=== PATIENT | female | born 1955 | race Caucasian/White ===

== ENCOUNTER → 2018-06-13 | Outpatient (CLI) | payer OTHER ==
[~2018-06-13] MED LIST: CONTRAST GIVEN. MC PRN; IOHEXOL 300 MG/ML 100ML VIAL. IV ONE
--- NOTE | 2018-06-13 14:33 | RAD ---
CT abdomen and pelvis with contrast 06/13/2018 CLINICAL INDICATION: Blunt trauma. COMPARISON: None. TECHNIQUE: Multiple CT images of the abdomen and pelvis were obtained following intravenous administration of 75 mm Omnipaque 300. *One or more of the following individualized dose reduction techniques were utilized for this examination: 1. Automated exposure control. 2. Adjustment of the mA and/or kV according to patient size. 3. Use of iterative reconstruction technique. FINDINGS: Mild cardiomegaly without significant pericardial effusion. Mosaic attenuation the lung bases. Liver, spleen, left adrenal gland, pancreas and kidneys are unremarkable. There is a right adrenal gland lesion measuring 2.3 cm series 2/image 24. Cholecystectomy without biliary ductal dilatation. Abdominal aorta is normal in caliber with moderate calcified plaque. No retroperitoneal or mesenteric lymphadenopathy. Small and large bowel loops are normal in caliber without obstruction. Appendix is not discretely identified and may be absent. Minimal sigmoid diverticulosis without diverticulitis. No abdominal free fluid. No pneumoperitoneum. Urinary bladder is decompressed. Uterus and adnexa are grossly unremarkable. No iliac or inguinal lymphadenopathy. Mild L5-S1 disc degeneration. There are no destructive osseous lesions. IMPRESSION: 1. No acute CT abdominal or pelvic process. 2. Indeterminate right adrenal gland lesion measuring 2.[address] adrenal protocol is recommended for further evaluation. 3. Mild cardiomegaly. 3. Mild mosaic attenuation indeterminate between physiologic and small airways disease. Electronically signed by: Mohan Beckett MD (06/13/2018 2:30 PM) [id number]
== END | disposition home or self-care (01) ==
LOC: CT 13:14
DX: S39.81XA Other specified injuries of abdomen, initial encounter (principal); I51.7 Cardiomegaly; M51.37 Other intervertebral disc degeneration, lumbosacral region; K57.30 Diverticulosis of large intestine without perforation or abscess without bleeding; I70.0 Atherosclerosis of aorta; X58.XXXA Exposure to other specified factors, initial encounter; Y93.89 Activity, other specified; Y92.89 Other specified places as the place of occurrence of the external cause; Y99.8 Other external cause status
CPT/HCPCS: 74177; Q9967

== ENCOUNTER → 2019-01-01 | Outpatient (CLI) | payer BC, OTHER ==
[~2019-01-01] MED LIST changes: -IOHEXOL 300 MG/ML 100ML VIAL. IV ONE
[2019-01-01] MEDS: IOHEXOL 300 MG/ML 100ML VIAL. IV ONE (09:13)
--- NOTE | 2019-01-01 13:56 | RAD ---
Examination: CT of the abdomen pelvis without and with IV contrast HISTORY: History of right adrenal lesion COMPARISON: 06/13/2018 TECHNIQUE: Axial CT images of the abdomen pelvis were performed without and with IV contrast using adrenal CT protocol. Exposure: One or more of the following individualized dose reduction techniques were utilized for this examination: 1. Automated exposure control 2. Adjustment of the mA and/or kV according to patient size 3. Use of iterative reconstruction technique FINDINGS: The bibasilar lungs are clear. No evidence of free air identified in the abdomen. The visualized liver, spleen, left adrenal grossly appears unremarkable. There is a right adrenal lesion measuring 2.6 cm measuring -1 Hounsfield units likely lipid rich adrenal adenoma. The stomach is minimally distended. The visualized pancreas grossly appears unremarkable. The small bowel is nondilated. Feces and gas noted in the colon. Sigmoid colon diverticulosis. The bilateral kidneys enhance symmetrically. Mild degenerative changes thoracolumbar spine. IMPRESSION: 1. 2.6 cm with a lipid rich right adrenal adenoma. Electronically signed by: Aram Harding MD (01/01/2019 1:54 PM) [id number]
== END | disposition home or self-care (01) ==
LOC: CT 08:20
PROVIDERS: ATTEND Family Medicine
DX: D35.01 Benign neoplasm of right adrenal gland (principal); K57.30 Diverticulosis of large intestine without perforation or abscess without bleeding; M47.815 Spondylosis without myelopathy or radiculopathy, thoracolumbar region
CPT/HCPCS: 74178; Q9967